=== PATIENT | male | born 1985 | race Caucasian/White ===

== ENCOUNTER 2022-01-22 06:54 | Inpatient (IN) | payer MEDICAID ==
[~2022-01-22] VITALS: Ht 182.9 cm; Wt 139.7 kg
[~2022-01-22 06:54] MED LIST: ELIQUIS; FURO-151 MT
[2022-01-22 07:27] LABS: BASOPHILS % 1.1 % (0.0-2.0); EOSINOPHILS % 1.3 % (0.0-5.0); HEMATOCRIT. 40.4 % (42.0-52.0); HEMOGLOBIN. 12.7 g/dL (14.0-18.0); LYMPHOCYTES % 19.2 % (20.0-50.0); MEAN CORPUSCULAR HEMOGLOBIN 26.6 pg (28.0-32.0); MEAN CORPUSCULAR VOLUME 84.8 fL (80.0-94.0); MEAN PLATELET VOLUME 7.8 fl (7.4-10.4); MONOCYTES % 10.9 % (2.0-8.0); NEUTROPHILS % 67.5 % (40.0-76.0); PLATELET 313 x1000/uL (130-400); RED BLOOD CELL COUNT 4.76 mill/uL (4.7-6.1); RED CELL DISTRIBUTION WIDTH 18.9 % (11.6-14.6)
[2022-01-22 07:36] LABS: CHLORIDE 106 mEq/L (98-107)
[2022-01-22] MEDS ORDERED: FUROSEMIDE 40MG/4ML VIAL IVP ONE (08:45)
[2022-01-22 09:36] LABS: BG BASE EXCESS 1.3 mmol/L (-2.0-2.0); BG CARBOXYHEMOGLOBIN 0.3 % (0.5-1.5); BG DEOXYHEMOGLOBIN 5.9 % (0.0-5.0); BG FRACTION INSPIRED OXYGEN 21; BG HCO3 ACT 26.6 mmol/L (22.0-26.0); BG METHEMOGLOBIN 0.3 % (0.0-1.5); BG OXYGEN SATURATION 94.1 % (92.0-98.5); BG OXYHEMOGLOBIN 93.5 % (94.0-97.0); BG PCO2 44.8 mmHg (35.0-45.0); BG PH 7.391 (7.350-7.450); BG PO2 70.8 mmHg (75.0-100.0); BG SAMPLE SITE RIGHT RADIAL; BG TOTAL HEMOGLOBIN 12.8 g/dL (12.0-18.0); BG VENT MODE ROOM AIR
[2022-01-22] MEDS ORDERED: DOCUSATE SODIUM 100MG CAPSULE PO PRN (13:00)
[2022-01-22] MEDS ORDERED: ONDANSETRON HCL 4MG/2ML INJ IV PRN (13:00)
[2022-01-22] MEDS ORDERED: LORAZEPAM 0.5MG TABLET PO PRN (13:00)
[2022-01-22] MEDS ORDERED: ACETAMINOPHEN 325MG TABLET PO PRN ×2 (13:00)
[2022-01-22] MEDS ORDERED: HYDROCODONE/ACETAMINOPHEN 5/325MG TABLET PO PRN (13:00)
[2022-01-22] MEDS ORDERED: CLONIDINE 0.1MG TABLET PO PRN (13:00)
[2022-01-22] MEDS ORDERED: IPRATROPIUM/ALBUTEROL 0.5-3(2.5)MG/3ML NEB HHN PRN (13:00)
[2022-01-22] MEDS ORDERED: NALOXONE HCL 0.4MG/ML VIAL IV PRN (13:15)
[2022-01-22] MEDS: METOPROLOL TARTRATE 50MG TABLET PO SCH ×2 (13:50→22:04)
[2022-01-22 15:00] VITALS: BP 113/77
[2022-01-22 15:33] VITALS: BP 113/77
[2022-01-22] MEDS ORDERED: FUROSEMIDE 40MG/4ML VIAL IVP SCH (17:00)
[2022-01-22] MEDS: FUROSEMIDE 40MG/4ML VIAL IVP SCH (18:01)
[2022-01-22] MEDS: ENOXAPARIN 150MG/ML SYR SUBCUT SCH (18:01)
[2022-01-22 20:00] VITALS: BP 156/60
[2022-01-22] MEDS ORDERED: DIGO250T79 MT (20:46)
[2022-01-22] MEDS ORDERED: DIGO250T79 PO (20:46)
[2022-01-23] VITALS: BP 118/73
[2022-01-23 04:00] VITALS: BP 115/82
[2022-01-23] MEDS: FUROSEMIDE 40MG/4ML VIAL IVP SCH ×2 (06:36→18:21)
[2022-01-23] MEDS: ENOXAPARIN 150MG/ML SYR SUBCUT SCH (06:36)
[2022-01-23 07:54] LABS: EOSINOPHILS % 1.6 % (0.0-5.0); HEMATOCRIT. 36.7 % (42.0-52.0); HEMOGLOBIN. 11.7 g/dL (14.0-18.0); LYMPHOCYTES % 22.7 % (20.0-50.0); MEAN CORPUSCULAR HEMOGLOBIN 26.3 pg (28.0-32.0); MEAN CORPUSCULAR VOLUME 82.4 fL (80.0-94.0); MEAN PLATELET VOLUME 8.2 fl (7.4-10.4); MONOCYTES % 11.9 % (2.0-8.0); NEUTROPHILS % 62.8 % (40.0-76.0); PLATELET 320 x1000/uL (130-400); RED BLOOD CELL COUNT 4.45 mill/uL (4.7-6.1); RED CELL DISTRIBUTION WIDTH 18.6 % (11.6-14.6)
[2022-01-23 08:00] VITALS: BP_SYST 100; BP_SYST 89; BP_DIAS 64; BP_DIAS 70
[2022-01-23 08:18] LABS: CHLORIDE 102 mEq/L (98-107)
[2022-01-23] MEDS: METOPROLOL TARTRATE 50MG TABLET PO SCH ×2 (09:00→21:31)
[2022-01-23 09:25] LABS: *AMPHETAMINES SCREEN URINE NEGATIVE (NEGATIVE); *BARBITURATES SCREEN URINE NEGATIVE (NEGATIVE); *BENZODIAZEPINES SCREEN URINE NEGATIVE (NEGATIVE); *COCAINE SCREEN URINE NEGATIVE (NEGATIVE); CANNABINOID URINE SCREEN NEGATIVE (NEGATIVE); METHADONE URINE SCREEN NEGATIVE (NEGATIVE); OPIATES URINE SCREEN NEGATIVE (NEGATIVE); PHENCYCLIDINE URINE SCREEN NEGATIVE (NEGATIVE)
[2022-01-23 12:00] VITALS: BP 110/71
[2022-01-23 16:00] VITALS: BP 112/74
[2022-01-23] MEDS: SPIRONOLACTONE 25MG TABLET PO SCH (18:22)
[2022-01-23] MEDS: ENOXAPARIN 100MG/ML SYR SUBCUT SCH (18:23)
[2022-01-23 20:00] VITALS: BP 107/62
[2022-01-24] VITALS: BP 106/68
[2022-01-24 04:00] VITALS: BP 103/71
[2022-01-24] MEDS: ENOXAPARIN 100MG/ML SYR SUBCUT SCH ×2 (05:33→18:45)
[2022-01-24] MEDS: FUROSEMIDE 40MG/4ML VIAL IVP SCH ×2 (05:33→18:45)
[2022-01-24 06:34] LABS: INR 1.2; PROTHROMBIN TIME 12.8 sec (9.6-11.0)
[2022-01-24 08:00] VITALS: BP 112/72
[2022-01-24] MEDS: METOPROLOL TARTRATE 50MG TABLET PO SCH ×2 (11:22→21:18)
[2022-01-24] MEDS: SPIRONOLACTONE 25MG TABLET PO SCH (11:23)
[2022-01-24 12:00] VITALS: BP 105/69
[2022-01-24 16:00] VITALS: BP 107/71
[2022-01-24 20:00] VITALS: BP 119/77
[2022-01-25] VITALS (7 sets, daily range): BP systolic 93–127; BP diastolic 53–72
[2022-01-25] MEDS: ENOXAPARIN 100MG/ML SYR SUBCUT SCH (06:08)
[2022-01-25] MEDS: FUROSEMIDE 40MG/4ML VIAL IVP SCH ×2 (06:08→18:17)
[2022-01-25] MEDS: LOSARTAN POTASSIUM 25 MG TABLET PO SCH (09:00)
[2022-01-25] MEDS: METOPROLOL TARTRATE 50MG TABLET PO SCH ×2 (09:39→21:03)
[2022-01-25] MEDS: SPIRONOLACTONE 25MG TABLET PO SCH (09:40)
[2022-01-25 12:17] LABS: BASOPHILS % 0.9 % (0.0-2.0); CHLORIDE 101 mEq/L (98-107); EOSINOPHILS % 1.3 % (0.0-5.0); HEMATOCRIT. 37.3 % (42.0-52.0); HEMOGLOBIN. 12.1 g/dL (14.0-18.0); LYMPHOCYTES % 16.8 % (20.0-50.0); MEAN CORPUSCULAR HEMOGLOBIN 26.5 pg (28.0-32.0); MEAN CORPUSCULAR VOLUME 81.9 fL (80.0-94.0); MEAN PLATELET VOLUME 8.1 fl (7.4-10.4); MONOCYTES % 14.4 % (2.0-8.0); NEUTROPHILS % 66.6 % (40.0-76.0); PLATELET 326 x1000/uL (130-400); RED BLOOD CELL COUNT 4.55 mill/uL (4.7-6.1); RED CELL DISTRIBUTION WIDTH 18.1 % (11.6-14.6)
[2022-01-25] MEDS: ENOXAPARIN 150MG/ML SYR SUBCUT SCH (18:47)
[2022-01-26 03:42] VITALS: BP 100/62
[2022-01-26] MEDS: ENOXAPARIN 150MG/ML SYR SUBCUT SCH (05:46)
[2022-01-26] MEDS: FUROSEMIDE 40MG/4ML VIAL IVP SCH (05:46)
[2022-01-26 06:42] LABS: BASOPHILS % 0.9 % (0.0-2.0); EOSINOPHILS % 1.7 % (0.0-5.0); HEMATOCRIT. 38.6 % (42.0-52.0); HEMOGLOBIN. 12.6 g/dL (14.0-18.0); LYMPHOCYTES % 22.8 % (20.0-50.0); MEAN CORPUSCULAR HEMOGLOBIN 26.7 pg (28.0-32.0); MEAN PLATELET VOLUME 7.9 fl (7.4-10.4); MONOCYTES % 14.2 % (2.0-8.0); NEUTROPHILS % 60.4 % (40.0-76.0); PLATELET 315 x1000/uL (130-400); RED BLOOD CELL COUNT 4.71 mill/uL (4.7-6.1); RED CELL DISTRIBUTION WIDTH 17.7 % (11.6-14.6)
[2022-01-26 07:47] LABS: CHLORIDE 100 mEq/L (98-107)
[2022-01-26 08:00] VITALS: BP 102/66
[2022-01-26] MEDS: METOPROLOL TARTRATE 50MG TABLET PO SCH (09:18)
[2022-01-26] MEDS: LOSARTAN POTASSIUM 25 MG TABLET PO SCH (09:18)
[2022-01-26] MEDS: SPIRONOLACTONE 25MG TABLET PO SCH (09:18)
[2022-01-26 12:00] VITALS: BP 119/56
[2022-01-26] MEDS ORDERED: SPIR25TA PO (12:25)
[2022-01-26] MEDS ORDERED: METO-539 PO (12:25)
[2022-01-26] MEDS ORDERED: LOSA25TA3 PO (12:25)
[2022-01-26] MEDS ORDERED: FURO-151 MT (12:25)
[2022-01-26] MEDS ORDERED: APIX5TAB MT (12:25)
[2022-01-26 13:31] VITALS: BP 119/56
== END 2022-01-26 16:56 | disposition home or self-care (01) | DRG 194 ==
LOC: ER 07:26 → EDBEDREQ 11:32 → EDBEDREQTM 11:32 → EDBEDREQSVC 11:33 → 6WST 12:12 → ENRESERV 12:28
PROVIDERS: ADMIT Internal Medicine; ATTEND Internal Medicine
DX: I11.0 Hypertensive heart disease with heart failure (principal); J96.01 Acute respiratory failure with hypoxia; I48.19 Other persistent atrial fibrillation; I42.0 Dilated cardiomyopathy; E11.9 Type 2 diabetes mellitus without complications; D64.9 Anemia, unspecified; J84.9 Interstitial pulmonary disease, unspecified; F12.90 Cannabis use, unspecified, uncomplicated; I50.23 Acute on chronic systolic (congestive) heart failure; I87.2 Venous insufficiency (chronic) (peripheral); I83.899 Varicose veins of unspecified lower extremity with other complications; F14.90 Cocaine use, unspecified, uncomplicated; F17.210 Nicotine dependence, cigarettes, uncomplicated; Z79.01 Long term (current) use of anticoagulants; Z20.822 Contact with and (suspected) exposure to COVID-19
CPT/HCPCS: 36415; 36600; 71045; 80048; 80053; 80305; 82375; 82805; 83880; 84484; 85025; 87426; 93005; 93306; 99285; C9803; J1650; J1940

== ENCOUNTER 2022-03-31 10:20 | Inpatient (IN) | payer MEDICAID ==
[~2022-03-31] VITALS: Ht 182.9 cm; Wt 104.3 kg
[~2022-03-31 10:20] MED LIST changes: +APIX5TAB MT; +LOSA25TA3 PO; +METO-539 PO; +SPIR25TA PO
[2022-03-31] MEDS ORDERED: FUROSEMIDE 40MG/4ML VIAL IVP ONE (10:45)
[2022-03-31] MEDS ORDERED: METOPROLOL TARTRATE 5MG/5ML VIAL IV ONE (10:45)
[2022-03-31 11:01] LABS: BASOPHILS % 1.1 % (0.0-2.0); EOSINOPHILS % 0.9 % (0.0-5.0); HEMATOCRIT. 38.8 % (42.0-52.0); HEMOGLOBIN. 12.4 g/dL (14.0-18.0); LYMPHOCYTES % 17.1 % (20.0-50.0); MEAN CORPUSCULAR HEMOGLOBIN 26.3 pg (28.0-32.0); MEAN CORPUSCULAR VOLUME 82.4 fL (80.0-94.0); MEAN PLATELET VOLUME 8.1 fl (7.4-10.4); MONOCYTES % 11.9 % (2.0-8.0); PLATELET 306 x1000/uL (130-400); RED BLOOD CELL COUNT 4.71 mill/uL (4.7-6.1); RED CELL DISTRIBUTION WIDTH 19.1 % (11.6-14.6)
[2022-03-31 11:11] LABS: INR 1.3; PROTHROMBIN TIME 13.8 sec (9.6-11.0)
[2022-03-31 11:17] LABS: CHLORIDE 105 mEq/L (98-107)
[2022-03-31] MEDS ORDERED: ASPIRIN 325MG TABLET PO ONE (12:00)
[2022-03-31] MEDS ORDERED: ONDANSETRON HCL 4MG/2ML INJ IV PRN (14:30)
[2022-03-31] MEDS ORDERED: ACETAMINOPHEN 325MG TABLET PO PRN (14:30)
[2022-03-31] MEDS ORDERED: FUROSEMIDE 40MG/4ML VIAL IVP SCH (17:15)
[2022-03-31 17:57] LABS: *AMPHETAMINES SCREEN URINE NEGATIVE (NEGATIVE); *BARBITURATES SCREEN URINE NEGATIVE (NEGATIVE); *BENZODIAZEPINES SCREEN URINE NEGATIVE (NEGATIVE); *COCAINE SCREEN URINE NEGATIVE (NEGATIVE); CANNABINOID URINE SCREEN NEGATIVE (NEGATIVE); METHADONE URINE SCREEN NEGATIVE (NEGATIVE); OPIATES URINE SCREEN NEGATIVE (NEGATIVE); PHENCYCLIDINE URINE SCREEN NEGATIVE (NEGATIVE)
[2022-03-31 17:58] VITALS: BP 121/87
[2022-03-31 17:59] VITALS: BP 170/119
[2022-03-31] MEDS: APIXABAN 5 MG TABLET PO SCH (18:30)
[2022-03-31] MEDS: FUROSEMIDE 40MG/4ML VIAL IVP SCH (18:30)
[2022-03-31] MEDS: METOPROLOL TARTRATE 50MG TABLET PO SCH (20:26)
[2022-04-01] MEDS: FUROSEMIDE 40MG/4ML VIAL IVP SCH (06:25)
[2022-04-01 07:23] LABS: CHLORIDE 101 mEq/L (98-107)
[2022-04-01 08:00] VITALS: BP 117/72
[2022-04-01] MEDS: APIXABAN 5 MG TABLET PO SCH ×2 (09:20→17:14)
[2022-04-01] MEDS: METOPROLOL TARTRATE 50MG TABLET PO SCH ×2 (09:21→21:00)
[2022-04-01] MEDS: LOSARTAN POTASSIUM 25 MG TABLET PO SCH (09:21)
[2022-04-01] MEDS: SPIRONOLACTONE 25MG TABLET PO SCH (09:22)
[2022-04-01 12:30] VITALS: BP 121/83
[2022-04-01] MEDS ORDERED: METOLAZONE 2.5MG TABLET PO NR (13:15)
[2022-04-01 16:05] VITALS: BP 121/71
[2022-04-01] MEDS: FUROSEMIDE 100MG/10ML VIAL IVP SCH (17:15)
[2022-04-01 20:00] VITALS: BP_SYST 106; BP_SYST 135; BP_DIAS 53; BP_DIAS 86
[2022-04-02] VITALS (7 sets, daily range): BP systolic 96–116; BP diastolic 57–85
[2022-04-02] MEDS: FUROSEMIDE 100MG/10ML VIAL IVP SCH ×2 (06:26→17:57)
[2022-04-02] MEDS: APIXABAN 5 MG TABLET PO SCH ×2 (09:26→17:57)
[2022-04-02] MEDS: LOSARTAN POTASSIUM 25 MG TABLET PO SCH (09:26)
[2022-04-02] MEDS: METOPROLOL TARTRATE 50MG TABLET PO SCH ×2 (09:28→21:00)
[2022-04-02] MEDS: SPIRONOLACTONE 25MG TABLET PO SCH (09:28)
[2022-04-02] MEDS ORDERED: APIX5TAB MT (12:09)
[2022-04-02] MEDS ORDERED: LOSA25TA3 PO (12:09)
[2022-04-02] MEDS ORDERED: SPIR25TA PO (12:09)
[2022-04-02] MEDS ORDERED: METO-539 PO (12:09)
[2022-04-02] MEDS ORDERED: FURO80TA87 MT (12:09)
[2022-04-02] MEDS ORDERED: METOLAZONE 2.5MG TABLET PO NR (12:15)
[2022-04-03] VITALS: BP 133/55
[2022-04-03 04:00] VITALS: BP 112/87
[2022-04-03] MEDS: FUROSEMIDE 100MG/10ML VIAL IVP SCH (06:22)
[2022-04-03 07:59] VITALS: BP 112/65
[2022-04-03] MEDS: APIXABAN 5 MG TABLET PO SCH (08:56)
[2022-04-03] MEDS: METOPROLOL TARTRATE 50MG TABLET PO SCH (08:56)
[2022-04-03] MEDS: SPIRONOLACTONE 25MG TABLET PO SCH (08:57)
[2022-04-03] MEDS: LOSARTAN POTASSIUM 25 MG TABLET PO SCH (08:57)
[2022-04-03] MEDS ORDERED: METO75TA MT (11:10)
[2022-04-03 11:46] VITALS: BP 110/62
[2022-04-03 13:04] LABS: CHLORIDE 95 mEq/L (98-107)
[2022-04-03] MEDS ORDERED: PANTOT AC/MIN OIL/PET HY-PHL OINT (AQUAPHOR) TOP SCH (13:30)
[2022-04-03] MEDS ORDERED: METOPROLOL TARTRATE 25MG TABLET PO SCH (21:00)
== END 2022-04-03 15:50 | disposition home or self-care (01) | DRG 194 ==
LOC: ER 10:20 → ENRESERV 14:39 → 6WST 16:59
PROVIDERS: ADMIT Internal Medicine Nephrology; ATTEND Internal Medicine Nephrology
DX: I11.0 Hypertensive heart disease with heart failure (principal); J96.00 Acute respiratory failure, unspecified whether with hypoxia or hypercapnia; E44.0 Moderate protein-calorie malnutrition; I48.19 Other persistent atrial fibrillation; D64.9 Anemia, unspecified; E11.9 Type 2 diabetes mellitus without complications; Z68.31 Body mass index [BMI] 31.0-31.9, adult; I50.23 Acute on chronic systolic (congestive) heart failure; Z86.718 Personal history of other venous thrombosis and embolism; Z86.711 Personal history of pulmonary embolism; Z79.01 Long term (current) use of anticoagulants; Z91.14 Patient's other noncompliance with medication regimen
CPT/HCPCS: 36415; 71045; 80048; 80053; 80305; 83880; 84484; 85025; 86850; 86900; 93005; 99291; J1940; J3490

== ENCOUNTER 2022-07-26 19:14 | Inpatient (IN) | payer MEDICAID ==
[~2022-07-26] VITALS: Ht 188 cm; Wt 156.7 kg
[~2022-07-26 19:14] MED LIST changes: +FURO80TA87 MT; +METO75TA MT
[2022-07-26] MEDS ORDERED: ASPIRIN 325MG EC TABLET PO ONE (20:15)
[2022-07-26] MEDS ORDERED: FUROSEMIDE 40MG/4ML VIAL IV ONE (20:15)
[2022-07-26] MEDS ORDERED: NITROGLYCERIN OINT 1GM/INCH UDPKT TD ONE (20:15)
[2022-07-26 20:52] LABS: BASOPHILS % 1.3 % (0.0-2.0); EOSINOPHILS % 0.9 % (0.0-5.0); HEMATOCRIT. 36.5 % (42.0-52.0); HEMOGLOBIN. 11.8 g/dL (14.0-18.0); LYMPHOCYTES % 13.1 % (20.0-50.0); MEAN CORPUSCULAR HEMOGLOBIN 26.5 pg (28.0-32.0); MEAN CORPUSCULAR VOLUME 82.1 fL (80.0-94.0); MEAN PLATELET VOLUME 7.7 fl (7.4-10.4); MONOCYTES % 12.4 % (2.0-8.0); NEUTROPHILS % 72.3 % (40.0-76.0); PLATELET 307 x1000/uL (130-400); RED BLOOD CELL COUNT 4.44 mill/uL (4.7-6.1); RED CELL DISTRIBUTION WIDTH 18.4 % (11.6-14.6)
[2022-07-26 21:02] LABS: CHLORIDE 97 mEq/L (98-107)
[2022-07-26 21:13] LABS: ETHANOL BLOOD < 10 mg/dL
[2022-07-26] MEDS ORDERED: APIXABAN 2.5 MG TABLET PO NR (22:00)
[2022-07-26] MEDS ORDERED: DILTIAZEM HCL 5MG/ML 5ML VIAL IV ONE (22:00)
[2022-07-26] MEDS ORDERED: DILTIAZEM HCL 180MG CAPSULE CD 24HR PO ONE (23:30)
[2022-07-27 01:10] LABS: *AMPHETAMINES SCREEN URINE PRESUMTIVE POSITIVE (NEGATIVE); *BARBITURATES SCREEN URINE NEGATIVE (NEGATIVE); *BENZODIAZEPINES SCREEN URINE NEGATIVE (NEGATIVE); *COCAINE SCREEN URINE NEGATIVE (NEGATIVE); CANNABINOID URINE SCREEN NEGATIVE (NEGATIVE); METHADONE URINE SCREEN NEGATIVE (NEGATIVE); OPIATES URINE SCREEN NEGATIVE (NEGATIVE); PHENCYCLIDINE URINE SCREEN NEGATIVE (NEGATIVE)
[2022-07-27] MEDS ORDERED: METO25TA6 PO (02:12)
[2022-07-27] MEDS ORDERED: SPIR25TA6 PO (02:12)
[2022-07-27] MEDS ORDERED: FURO80TA3 PO (02:12)
[2022-07-27] MEDS ORDERED: LOSA25TA26 PO (02:12)
[2022-07-27 03:00] VITALS: BP 121/78
[2022-07-27] MEDS ORDERED: POTASSIUM CHLORIDE 20MEQ TABLET SR PO NR ×2 (04:15→08:00)
[2022-07-27] MEDS ORDERED: ONDANSETRON HCL 4MG/2ML INJ IV PRN (04:15)
[2022-07-27 08:00] VITALS: BP 109/70
[2022-07-27] MEDS ORDERED: LISINOPRIL 20MG TABLET PO SCH (09:00)
[2022-07-27] MEDS ORDERED: METOPROLOL TARTRATE 50MG TABLET PO SCH (09:00)
[2022-07-27 10:03] LABS: BASOPHILS % 1.1 % (0.0-2.0); EOSINOPHILS % 1.7 % (0.0-5.0); HEMATOCRIT. 33.7 % (42.0-52.0); HEMOGLOBIN. 10.9 g/dL (14.0-18.0); LYMPHOCYTES % 16.9 % (20.0-50.0); MEAN CORPUSCULAR HEMOGLOBIN 26.4 pg (28.0-32.0); MEAN CORPUSCULAR VOLUME 81.5 fL (80.0-94.0); MONOCYTES % 13.4 % (2.0-8.0); NEUTROPHILS % 66.9 % (40.0-76.0); PLATELET 269 x1000/uL (130-400); RED BLOOD CELL COUNT 4.13 mill/uL (4.7-6.1); RED CELL DISTRIBUTION WIDTH 18.6 % (11.6-14.6)
[2022-07-27] MEDS: APIXABAN 5 MG TABLET PO SCH ×2 (10:10→20:41)
[2022-07-27] MEDS: SPIRONOLACTONE 25MG TABLET PO SCH (10:10)
[2022-07-27] MEDS ORDERED: DIGOXIN 500MCG/2ML AMP IV NR (10:15)
[2022-07-27] MEDS: FUROSEMIDE 40MG/4ML VIAL IVP SCH ×2 (10:17→20:16)
[2022-07-27] MEDS: ACETAMINOPHEN 325MG TABLET PO PRN ×2 (10:24→20:11)
[2022-07-27 10:34] LABS: CHLORIDE 99 mEq/L (98-107)
[2022-07-27] MEDS ORDERED: METOLAZONE 2.5MG TABLET PO NR (10:45)
[2022-07-27 12:00] VITALS: BP 112/73
[2022-07-27 16:00] VITALS: BP 125/76
[2022-07-27] MEDS: DIGOXIN 500MCG/2ML AMP IV SCH (17:31)
[2022-07-27 20:00] VITALS: BP 91/48
[2022-07-27] MEDS: METOPROLOL TARTRATE 50MG TABLET PO SCH (20:16)
[2022-07-28] VITALS: BP 81/35
[2022-07-28] MEDS: ACETAMINOPHEN 325MG TABLET PO PRN ×2 (01:23→23:16)
[2022-07-28 04:00] VITALS: BP 86/43
[2022-07-28 08:00] VITALS: BP 91/50
[2022-07-28] MEDS: FUROSEMIDE 40MG/4ML VIAL IVP SCH ×3 (08:31→21:00)
[2022-07-28] MEDS: METOPROLOL TARTRATE 50MG TABLET PO SCH ×2 (08:32→21:00)
[2022-07-28] MEDS: SPIRONOLACTONE 25MG TABLET PO SCH (08:35)
[2022-07-28] MEDS: APIXABAN 5 MG TABLET PO SCH ×2 (08:36→21:36)
[2022-07-28 12:04] VITALS: BP 102/49
[2022-07-28 16:00] VITALS: BP 89/50
[2022-07-28] MEDS: DIGOXIN 500MCG/2ML AMP IV SCH (19:12)
[2022-07-28] MEDS ORDERED: POTASSIUM CHLORIDE 20MEQ TABLET SR PO NR (20:15)
[2022-07-28 20:43] VITALS: BP 94/47
[2022-07-29 00:22] VITALS: BP 95/38
[2022-07-29 04:00] VITALS: BP 92/49
[2022-07-29 08:00] VITALS: BP 91/62
[2022-07-29] MEDS: FUROSEMIDE 40MG/4ML VIAL IVP SCH ×2 (08:26→21:27)
[2022-07-29] MEDS: APIXABAN 5 MG TABLET PO SCH ×2 (08:27→21:26)
[2022-07-29] MEDS: METOPROLOL TARTRATE 50MG TABLET PO SCH (08:30)
[2022-07-29] MEDS: ACETAMINOPHEN 325MG TABLET PO PRN ×2 (08:51→21:27)
[2022-07-29 12:00] VITALS: BP 93/54
[2022-07-29 16:00] VITALS: BP 120/80
[2022-07-29] MEDS: DIGOXIN 500MCG/2ML AMP IV SCH (17:19)
[2022-07-29 20:00] VITALS: BP 123/74
[2022-07-29] MEDS: METOPROLOL TARTRATE 25MG TABLET PO SCH (21:27)
[2022-07-30] VITALS: BP 102/52
[2022-07-30 04:00] VITALS: BP 100/74
[2022-07-30] MEDS ORDERED: METOLAZONE 2.5MG TABLET PO NR (07:00)
[2022-07-30] MEDS: ACETAMINOPHEN 325MG TABLET PO PRN (07:10)
[2022-07-30 07:21] LABS: CHLORIDE 101 mEq/L (98-107)
[2022-07-30 08:00] VITALS: BP 122/64
[2022-07-30] MEDS: FUROSEMIDE 40MG/4ML VIAL IVP SCH ×2 (08:23→20:46)
[2022-07-30] MEDS: APIXABAN 5 MG TABLET PO SCH ×2 (08:23→20:46)
[2022-07-30] MEDS: METOPROLOL TARTRATE 25MG TABLET PO SCH (08:26)
[2022-07-30 12:00] VITALS: BP_SYST 140; BP_SYST 144; BP_DIAS 68; BP_DIAS 69
[2022-07-30 16:00] VITALS: BP 144/69
[2022-07-30] MEDS ORDERED: METO2.5T2 MT (17:37)
[2022-07-30] MEDS ORDERED: LOSA25TA26 PO (17:37)
[2022-07-30] MEDS ORDERED: FURO80TA87 MT (17:37)
[2022-07-30] MEDS ORDERED: APIX5TAB PO (17:37)
[2022-07-30] MEDS ORDERED: SPIR25TA6 PO (17:37)
[2022-07-30] MEDS ORDERED: METO25TA6 PO (17:37)
[2022-07-30] MEDS: DIGOXIN 500MCG/2ML AMP IV SCH (18:00)
[2022-07-30 20:00] VITALS: BP 142/58
[2022-07-30] MEDS: METOPROLOL TARTRATE 50MG TABLET PO SCH (20:43)
[2022-07-31] VITALS: BP 117/71
[2022-07-31 04:00] VITALS: BP 128/67
[2022-07-31 08:00] VITALS: BP 129/66
[2022-07-31] MEDS: APIXABAN 5 MG TABLET PO SCH ×2 (09:12→20:40)
[2022-07-31] MEDS: METOPROLOL TARTRATE 50MG TABLET PO SCH ×2 (09:14→20:40)
[2022-07-31] MEDS: FUROSEMIDE 40MG/4ML VIAL IVP SCH ×2 (09:15→21:00)
[2022-07-31] MEDS ORDERED: METOLAZONE 2.5MG TABLET PO NR (11:15)
[2022-07-31 12:00] VITALS: BP 119/64
[2022-07-31] MEDS ORDERED: LACTULOSE 20G/30ML UDC PO NR (13:30)
[2022-07-31 16:00] VITALS: BP 122/60
[2022-07-31 20:00] VITALS: BP 158/59
[2022-08-01] VITALS: BP 121/80
[2022-08-01 04:00] VITALS: BP 124/77
[2022-08-01 07:46] LABS: CHLORIDE 93 mEq/L (98-107)
[2022-08-01 08:00] VITALS: BP 125/62
[2022-08-01] MEDS: FUROSEMIDE 40MG/4ML VIAL IVP SCH ×2 (10:28→21:00)
[2022-08-01] MEDS: APIXABAN 5 MG TABLET PO SCH ×2 (10:28→20:27)
[2022-08-01 12:00] VITALS: BP 110/71
[2022-08-01 16:00] VITALS: BP 123/71
[2022-08-01 20:00] VITALS: BP 98/58
[2022-08-01] MEDS: ACETAMINOPHEN 325MG TABLET PO PRN (20:27)
[2022-08-01] MEDS: METOPROLOL TARTRATE 25MG TABLET PO SCH (21:00)
[2022-08-02] VITALS: BP 130/68
[2022-08-02 04:00] VITALS: BP 129/69
[2022-08-02 08:00] VITALS: BP 111/54
[2022-08-02] MEDS ORDERED: POTASSIUM CHLORIDE 20MEQ TABLET SR PO NR (09:00)
[2022-08-02] MEDS: FUROSEMIDE 40MG/4ML VIAL IVP SCH (09:29)
[2022-08-02] MEDS: APIXABAN 5 MG TABLET PO SCH (09:29)
[2022-08-02] MEDS: METOPROLOL TARTRATE 25MG TABLET PO SCH (09:32)
[2022-08-02 12:00] VITALS: BP 114/85
[2022-08-02 15:03] VITALS: BP 114/85
[2022-08-02] MEDS ORDERED: METOPROLOL TARTRATE 25MG TABLET PO SCH (21:00)
== END 2022-08-02 16:00 | disposition home or self-care (01) | DRG 201 ==
LOC: ER 19:14 → EDBEDREQ 23:30 → MICUSO 23:57 → 7WST 07-27 01:54
PROVIDERS: ADMIT Internal Medicine; ATTEND Internal Medicine
DX: I48.19 Other persistent atrial fibrillation (principal); I50.23 Acute on chronic systolic (congestive) heart failure; E44.1 Mild protein-calorie malnutrition; I42.9 Cardiomyopathy, unspecified; E87.1 Hypo-osmolality and hyponatremia; E11.9 Type 2 diabetes mellitus without complications; D64.9 Anemia, unspecified; Z79.01 Long term (current) use of anticoagulants; E66.9 Obesity, unspecified; E87.6 Hypokalemia; F15.10 Other stimulant abuse, uncomplicated; Z79.899 Other long term (current) drug therapy; Z79.84 Long term (current) use of oral hypoglycemic drugs; Z68.41 Body mass index [BMI] 40.0-44.9, adult; Z71.51 Drug abuse counseling and surveillance of drug abuser; Z91.14 Patient's other noncompliance with medication regimen
CPT/HCPCS: 36415; 71045; 80048; 80053; 80162; 80305; 80320; 83735; 83880; 84484; 85025; 93005; 97162; 97166; 99291; A6261; J1160; J1940; J3490; G0480